=== PATIENT | female | born 1940 | race Caucasian/White ===

== ENCOUNTER → 2016-04-20 | Outpatient (REF) | payer MEDICARE, OTHER ==
[~2016-04-20] MED LIST: /PANT40TA; /WARF25TA; ACET65TA; ASTELIN; CALCCHW12; FLON0.05; PERC5TAB8; THERGRAN
== END | disposition home or self-care (01) ==
LOC: M LAB 16:00
PROVIDERS: ATTEND Surgery
DX: C44.519 Basal cell carcinoma of skin of other part of trunk (principal); L57.0 Actinic keratosis; L56.8 Other specified acute skin changes due to ultraviolet radiation

== ENCOUNTER 2017-03-27 08:37 | Day surgery (SDC) | payer MEDICARE, OTHER ==
[2017-03-27] MEDS: NS 1,000 ML IV (08:45)
[2017-03-27] MEDS ORDERED: PROPOFOL 200 MG/20 ML VIAL As Ordered (09:36)
[2017-03-27] MEDS ORDERED: LIDOCAINE 2% INJ 100 MG/5 ML SDV (FOR ANES.) As Ordered (09:36)
== END 2017-03-27 10:43 | disposition home or self-care (01) ==
LOC: M OPP 08:37
DX: R12 Heartburn (principal); K44.9 Diaphragmatic hernia without obstruction or gangrene; J45.909 Unspecified asthma, uncomplicated; K21.9 Gastro-esophageal reflux disease without esophagitis; E78.00 Pure hypercholesterolemia, unspecified; R11.2 Nausea with vomiting, unspecified; Z79.82 Long term (current) use of aspirin; Z79.899 Other long term (current) drug therapy; Z88.0 Allergy status to penicillin; Z78.0 Asymptomatic menopausal state; Z96.642 Presence of left artificial hip joint
CPT/HCPCS: 43239

== ENCOUNTER → 2017-11-29 | Outpatient (CLI) | payer MEDICARE, OTHER | LOC: M PAIN 12:30 | DX: G89.29 Other chronic pain (principal); M54.5 Low back pain; M47.816 Spondylosis without myelopathy or radiculopathy, lumbar region; M48.061 Spinal stenosis, lumbar region without neurogenic claudication; J30.2 Other seasonal allergic rhinitis; K21.9 Gastro-esophageal reflux disease without esophagitis; M19.90 Unspecified osteoarthritis, unspecified site; Z96.642 Presence of left artificial hip joint; Z98.49 Cataract extraction status, unspecified eye; Z79.82 Long term (current) use of aspirin; Z79.899 Other long term (current) drug therapy; Z88.0 Allergy status to penicillin | CPT/HCPCS: G0463 ==

== ENCOUNTER → 2018-01-16 | Outpatient (REF) | payer MEDICARE, OTHER ==
[2018-01-16 14:13] LABS: PROTHROMBIN TIME 12.2 SECONDS (12.1-14.4)
[2018-01-16 14:14] LABS: PARTIAL THROMBOPLASTIN TIME 26.6 SECONDS (25.4-37.6)
== END ==
LOC: M LAB REF 13:42
DX: Z01.812 Encounter for preprocedural laboratory examination (principal); Z79.01 Long term (current) use of anticoagulants
CPT/HCPCS: 85610

== ENCOUNTER → 2018-08-09 | Outpatient (REF) | payer MEDICARE, OTHER ==
[~2018-08-09] MED LIST changes: -/PANT40TA; -/WARF25TA; -ACET65TA; +ACET65TA PO; +ASPI81TA85 PO; +ASTE0.15; -CALCCHW12; +CALCCHW12 PO; +COUM1TAB18; +MONT10TA2 PO; +PRAV20TA2 PO; +PROT1TAB2 PO; -THERGRAN; +THERGRAN PO; +VITA100067 PO
[2018-08-09 12:32] LABS: INR 0.96; PROTHROMBIN TIME 12.9 SECONDS (12.1-14.4)
== END ==
LOC: M LABDRAW1 11:46
PROVIDERS: ATTEND Physician Assistant
DX: Z01.812 Encounter for preprocedural laboratory examination (principal); Z79.82 Long term (current) use of aspirin

== ENCOUNTER → 2018-09-18 | Outpatient (REF) | payer MEDICARE, OTHER ==
[2018-09-22 00:08] LABS: Lyme Disease IgG/IgM Antibodie <0.91 ISR (0.00-0.90); Lyme Disease IgM Ab Quantitati <0.80 index (0.00-0.79)
== END ==
LOC: M LAB REF 16:38
PROVIDERS: ATTEND Nurse Practitioner Adult Health
DX: R55 Syncope and collapse (principal); R00.1 Bradycardia, unspecified

== ENCOUNTER → 2019-02-12 | Outpatient (REF) | payer MEDICARE, OTHER | LOC: M LAB REF 16:23 | PROVIDERS: ATTEND Nurse Practitioner Family | DX: L08.9 Local infection of the skin and subcutaneous tissue, unspecified (principal) ==

== ENCOUNTER → 2019-02-25 | Outpatient (REF) | payer MEDICARE, OTHER ==
[2019-02-25 14:06] LABS: FOLATE > 24.0 NG/ML; VITAMIN B12 LEVEL 561 PG/ML
== END ==
LOC: M LAB REF 13:14
PROVIDERS: ATTEND Internal Medicine
DX: D72.829 Elevated white blood cell count, unspecified (principal)

== ENCOUNTER → 2020-06-10 | Outpatient (CLI) | payer MEDICARE, OTHER ==
[~2020-06-10] MED LIST changes: +ASPI81CH48 PO; -ASPI81TA85 PO; +ASPI81TA86 PO; +ATOR40TA75 PO; +AZEL0.055 NARES; +CITRTAB16 PO; +D31000TA2 PO; +FLON1SPR; +LORA-243 PO; +LOSA100T50 PO; +MONT10TA10 PO; -MONT10TA2 PO; +VITMTA PO
== END ==
LOC: M LABSMTC 11:53
PROVIDERS: ATTEND Anesthesiology
DX: Z01.812 Encounter for preprocedural laboratory examination (principal)

== ENCOUNTER 2020-06-15 10:07 | Day surgery (SDC) | payer MEDICARE ==
[~2020-06-15] VITALS: Ht 158.8 cm; Wt 67.6 kg
[~2020-06-15 10:07] MED LIST changes: +NS 1,000 ML IV ONE
[2020-06-15] MEDS ORDERED: propofoL 200 MG/20 ML VIAL As Ordered ONE (11:06)
[2020-06-15] MEDS ORDERED: LIDOCAINE 2% 100MG/5ML SDV (FOR ANES.) As Ordered ONE (11:06)
--- NOTE | 2020-06-15 11:41 | ROOR ---
Patient Name: Nilsa Stratton Procedure Date: 06/15/2020 11:20 AM Date of : 1940 Age: 79 Room: [facility] Gender: Female Note Status: Finalized Procedure: Upper Endoscopy + Biopsies Indications: Heartburn, Exclusion of Waterman's esophagus Providers: Tito Carreon MD Referring MD: KIT RUSSELL JR, MD Requesting Provider: Medicines: Monitored Anesthesia Care Complications: No immediate complications. Procedure: Pre-Anesthesia Assessment: - The heart rate, respiratory rate, oxygen saturations, blood pressure, adequacy of pulmonary ventilation, and response to care were monitored throughout the procedure. The Endoscope was introduced through the mouth, and advanced to the second part of duodenum. The upper GI endoscopy was accomplished without difficulty. The patient tolerated the procedure well. Findings: The Z-line was irregular and was found 35 cm from the incisors. Multiple biopsies were obtained with cold forceps for evaluation to rule out Waterman's Esophagus randomly at the gastroesophageal junction. A small hiatal hernia was present. Multiple small pedunculated and sessile polyps were found in the gastric antrum. Biopsies were taken with a cold forceps for histology. The exam was otherwise without abnormality. Impression: - Z-line irregular, 35 cm from the incisors. - Small hiatal hernia. - Multiple gastric polyps. Biopsied. - The examination was otherwise normal. - Multiple biopsies were obtained at the gastroesophageal junction. - The examination was otherwise normal. Recommendation: - Await pathology results. - Discharge patient to home. - Follow an antireflux regimen. - Continue present medications. - Await pathology results. - Telephone GI clinic for pathology results in 1 week. - Return to referring physician. - Repeat upper endoscopy for surveillance based on pathology results. - The findings and recommendations were discussed with the patient. Procedure Code(s): --- Professional --- 21611, Esophagogastroduodenoscopy, flexible, transoral; with biopsy, single or multiple Diagnosis Code(s): --- Professional --- K22.8, Other specified diseases of esophagus K44.9, Diaphragmatic hernia without obstruction or gangrene K31.7, Polyp of stomach and duodenum R12, Heartburn CPT copyright 2019 [employer]. All rights reserved. The codes documented in this report are preliminary and upon ui architect review may be revised to meet current compliance requirements. Tito Carreon MD Tito Carreon MD 06/15/2020 11:41:01 AM Electronically signed by Tito Carreon MD Number of Addenda: 0 Note Initiated On: 06/15/2020 11:20 AM Estimated Blood Loss: Estimated blood loss: none.
[2020-06-15 12:05] VITALS: BP 182/84
== END 2020-06-15 12:17 | disposition home or self-care (01) ==
LOC: M OPP 10:07
PROVIDERS: ATTEND Internal Medicine Gastroenterology
DX: K22.8 Other specified diseases of esophagus (principal); K44.9 Diaphragmatic hernia without obstruction or gangrene; K31.7 Polyp of stomach and duodenum; R12 Heartburn; R79.82 Elevated C-reactive protein (CRP); Z79.899 Other long term (current) drug therapy; Z88.0 Allergy status to penicillin

== ENCOUNTER → 2020-08-11 | Outpatient (REF) | payer MEDICARE, OTHER ==
[~2020-08-11] MED LIST changes: -NS 1,000 ML IV ONE
== END ==
LOC: M LAB REF 09:09
PROVIDERS: ATTEND Dermatology
DX: L90.5 Scar conditions and fibrosis of skin (principal)

== ENCOUNTER → 2020-08-18 | Outpatient (REF) | payer MEDICARE, OTHER | LOC: M LAB REF 19:19 | PROVIDERS: ATTEND Dermatology | DX: C44.602 Unspecified malignant neoplasm of skin of right upper limb, including shoulder (principal) ==

== ENCOUNTER → 2022-04-29 | Outpatient (REF) | payer MEDICARE ==
[~2022-04-29] MED LIST changes: +CITRACAL MAXIMU1 TAB PO; -CITRTAB16 PO; -D31000TA2 PO; +LOSA100T45 PO; -LOSA100T50 PO; -MONT10TA10 PO; +MONT10TA97 PO; +VITA100093 PO
[2022-04-29 17:12] LABS: TOTAL IRON BINDING CAPACITY 281 UG/DL (250-425)
[2022-04-29 17:14] LABS: IRON (FE) 110 UG/DL (50-170); PERCENT SATURATION 39.1 % (13.2-45.0)
[2022-04-29 17:17] LABS: FERRITIN 113.7 NG/ML (7.3-270.7)
[2022-04-29 17:18] LABS: FOLATE > 24.0 NG/ML (>5.4)
[2022-04-29 17:19] LABS: VITAMIN B12 LEVEL 765 PG/ML (211-911)
== END ==
LOC: M LAB REF 16:15
PROVIDERS: ATTEND Internal Medicine
DX: D72.819 Decreased white blood cell count, unspecified (principal); D64.9 Anemia, unspecified

== ENCOUNTER → 2024-10-23 | Outpatient (REF) | payer MEDICARE ==
[~2024-10-23] MED LIST changes: -AZEL0.055 NARES; +AZEL1SPR4 NARES; -LOSA100T45 PO; +LOSA100T46 PO; -PRAV20TA2 PO; +PRAV20TA78 PO
== END ==
LOC: M LAB REF 17:15
PROVIDERS: ATTEND Internal Medicine
DX: M80.08XA Age-related osteoporosis with current pathological fracture, vertebra(e), initial encounter for fracture (principal); Z79.899 Other long term (current) drug therapy

== ENCOUNTER → 2024-11-19 | Outpatient (REF) | payer MEDICARE | LOC: M LAB REF 17:13 | PROVIDERS: ATTEND Internal Medicine | DX: R31.9 Hematuria, unspecified (principal) ==

== ENCOUNTER → 2025-02-12 | Outpatient (CLI) | payer MEDICARE | LOC: M RAD 14:51 | PROVIDERS: ATTEND Otolaryngology | DX: J32.9 Chronic sinusitis, unspecified (principal); J34.2 Deviated nasal septum; R09.82 Postnasal drip ==